=== PATIENT | male | born 1975 | race Two or more races ===

== ENCOUNTER 2018-08-29 14:37 | Emergency (ER) | payer SELFPAY ==
[~2018-08-29] VITALS: Ht 165.1 cm; Wt 68.0 kg
[~2018-08-29 14:37] MED LIST: HYDR500T13 PO
[2018-08-29] MEDS ORDERED: SODIUM CHLORIDE 0.9% 1,000 ML IV ONE ×2 (15:15→16:30)
[2018-08-29] MEDS ORDERED: MECLIZINE HCL 25 MG TAB PO ONE (15:15)
[2018-08-29] MEDS ORDERED: ONDANSETRON HCL 4 MG/2 ML VIAL IV ONE (15:15)
[2018-08-29 15:19] VITALS: BP 120/88
[2018-08-29 15:35] LABS: Basophils # (auto) 0 uL; Basophils % (auto) 0.2 % (0.0-2.0); Eosinophils # (auto) 0 uL; Hemoglobin 17.8 g/dL (13.5-17.5); Lymphocytes # (auto) 1.3 uL; Monocytes # (auto) 0.7 uL; Neutrophils # (auto) 12.7 uL; Nucleated Red Blood Cells % 0.1 %; Red Cell Distribution Width 13.2 % (11.8-14.3)
[2018-08-29 15:44] LABS: Blood Alcohol < 3.0 mg/dL (0-5); Lipase 149 U/L (73-393)
[2018-08-29 15:45] LABS: Alanine Aminotransferase 30 U/L (16-61); Anion Gap 5 (5-15); Aspartate Aminotransferase 14 U/L (15-37); BUN/Creatinine Ratio 23.3; Blood Urea Nitrogen 24 mg/dL (7-18); Calcium 8.3 mg/dL (8.5-10.1); Carbon Dioxide 25 mmol/L (21-32); Chloride 109 mmol/L (98-107); GFR African American 103 mL/min; GFR Non-African American 85 mL/min; Glucose 101 mg/dL (74-106); Magnesium 2.4 mg/dL (1.6-2.6); Potassium 3.8 mmol/L (3.5-5.1); Sodium 139 mmol/L (136-145)
[2018-08-29 15:47] LABS: White Blood Cell 14.9 10^3/uL (4.4-10.8)
[2018-08-29 15:48] LABS: Eosinophils % (auto) 0.2 % (0.0-7.0); Hematocrit 52.1 % (41.0-53.0); Lymphocytes % (auto) 8.8 % (10.0-50.0); Mean Corpuscular Volume 93.1 fL (80.0-100.0); Neutrophils % (auto) 85.8 % (37.0-80.0)
[2018-08-29 15:49] LABS: Alkaline Phosphatase 99 U/L (45-117); Bilirubin, Total 0.6 mg/dL (0.2-1.0); Mean Corpuscular Hemoglobin 31.8 pg (28.0-32.0); Mean Corpuscular Hgb Conc. 34.1 g/dL (32.0-36.0); Platelet Count (auto) 234 10^3/uL (140-450); Total Protein 7.8 g/dL (6.4-8.2)
[2018-08-29 15:56] LABS: Urine Bacteria NONE SEEN /hpf (None Seen); Urine Blood Negative /uL (Negative); Urine Mucus FEW (None Seen); Urine Specific Gravity 1.029 (1.001-1.035); Urine WBC 1 /hpf (0 - 3)
[2018-08-29 15:59] LABS: Alcohol, Urine < 3.0 mg/dL (0-5); Amphetamine Screen, Urine NEGATIVE (NEGATIVE); Barbiturate Scree,Urine NEGATIVE (NEGATIVE); Benzodiazephine Screen, Urine NEGATIVE (NEGATIVE); Cannabinoid Screen, Urine NEGATIVE (NEGATIVE); Cocaine Screen, Urine NEGATIVE (NEGATIVE); Opiate Scree,Urine NEGATIVE (NEGATIVE); Phencyclidine Screen, Urine NEGATIVE (NEGATIVE)
== END 2018-08-29 17:30 | disposition home or self-care (01) ==
LOC: ER 14:46
DX: R42 Dizziness and giddiness (principal); E86.0 Dehydration; F17.210 Nicotine dependence, cigarettes, uncomplicated
CPT/HCPCS: 36415; 70450; 80053; 80307; 80320; 81001; 83690; 83735; 84484; 85025; 93005; 96361; 96374; 99284; J2405; J7030; J8597

== ENCOUNTER 2018-11-08 21:01 | Emergency (ER) | payer SELFPAY ==
[~2018-11-08] VITALS: Ht 165.1 cm; Wt 68.0 kg
[2018-11-08 21:04] VITALS: BP 114/84
[2018-11-08] MEDS ORDERED: SODIUM CHLORIDE 0.9% 1,000 ML IV ONE (21:45)
[2018-11-08] MEDS ORDERED: TETRACAINE HCL 0.5% OPTH(EYE) SOLN 4ML EACHEYE ONE (21:45)
== END 2018-11-08 23:02 | disposition home or self-care (01) ==
LOC: EDBD 21:01 → ER 21:01
DX: S05.01XA Injury of conjunctiva and corneal abrasion without foreign body, right eye, initial encounter (principal); F17.210 Nicotine dependence, cigarettes, uncomplicated; X58.XXXA Exposure to other specified factors, initial encounter; Y93.89 Activity, other specified; Y99.8 Other external cause status; Y92.89 Other specified places as the place of occurrence of the external cause
CPT/HCPCS: 99283; J7030; 96360